=== PATIENT | female | born 1985 ===

== ENCOUNTER 2022-03-19 | Emergency (ER) | payer OTHER ==
[2022-03-19] MEDS ORDERED: Albuterol/Ipratropium 3.0-0.5 MG/3 ML Neb Soln NEB ONE (00:12)
[2022-03-19 01:18] LABS: BLOOD UREA NITROGEN,BUN 9 mg/dL (7.0-18.0); CARBON DIOXIDE,CO2 23.4 mmol/L (21.0-32.0); CHLORIDE,CL 102 mmol/L (98-107); GLUCOSE RANDOM 112 mg/dL (74-106); POTASSIUM,K 3.2 mmol/L (3.5-5.1); SODIUM,NA 136 mmol/L (136-145)
[2022-03-19 01:23] LABS: CORONAVIRUS COVID-19 NAA NEGATIVE (NEGATIVE); INFLUENZA A NAA NEGATIVE (NEGATIVE); INFLUENZA B NAA NEGATIVE (NEGATIVE); RESPIRATORY SYNCYTIAL VIR NAA NEGATIVE (NEGATIVE)
[2022-03-19] MEDS ORDERED: predniSONE 20 MG Tab PO ONE (01:43)
[2022-03-19] MEDS ORDERED: Amoxicillin 500 MG Cap PO STA (01:43)
== END 2022-03-19 01:58 | disposition home or self-care (01) ==
LOC: MW.ED
DX: J18.9 Pneumonia, unspecified organism (principal); J20.9 Acute bronchitis, unspecified; Z20.822 Contact with and (suspected) exposure to COVID-19
CPT/HCPCS: 0241U; 36415; 71045; 80053; 85025; 93005; 94642; 99284; A9270; 93010; 99283; J7620-GY